=== PATIENT | female | born 1990 | race Two or more races ===

== ENCOUNTER 2023-03-03 00:47 | Inpatient (IN) | payer BC ==
[2023-03-03] VITALS (8 sets, daily range): BP systolic 118–156; BP diastolic 67–91; O2SAT 98
[~2023-03-03] VITALS: Ht 177.8 cm; Wt 103.1 kg
[2023-03-03] MEDS ORDERED: PRENTAB9 PO (00:53)
[2023-03-03] MEDS ORDERED: IRON27TA2 PO (01:33)
[2023-03-03] MEDS ORDERED: ZOLO25TA PO (01:33)
[2023-03-03] MEDS ORDERED: LIDOCAINE 1% MDV 20ML VIAL As Ordered ONE (02:00)
[2023-03-03] MEDS ORDERED: LIDOCAINE 1% MDV 20ML VIAL INFIL PRN (02:25)
[2023-03-03] MEDS ORDERED: OXYTOCIN INJ 10UNITS/ML 1ML VIAL IM PRN (02:25)
[2023-03-03] MEDS ORDERED: METHYLERGONOVINE MALEATE 0.2 MG TAB PO PRN (02:30)
[2023-03-03] MEDS ORDERED: ACETAMINOPHEN TAB 650MG DOSE (2X325MG) PO PRN (02:30)
[2023-03-03] MEDS ORDERED: DOCUSATE SODIUM 100MG CAPSULE PO PRN (02:30)
[2023-03-03] MEDS ORDERED: RHOGAM 300MCG (1500IU) INJ IM SCH (02:30)
[2023-03-03] MEDS ORDERED: IBUPROFEN 800 MG TAB PO PRN (02:30)
[2023-03-03] MEDS ORDERED: DIBUCAINE 1% OINTMENT 30GM TOP PRN (02:30)
[2023-03-03] MEDS ORDERED: IBUPROFEN 600MG TAB PO PRN (02:30)
[2023-03-03] MEDS ORDERED: ACETAMINOPHEN 500 MG TAB PO PRN (02:30)
[2023-03-03 02:31] LABS: HEMATOCRIT 38.8 % (36.0-47.0); HEMOGLOBIN 13.1 g/dl (12.0-15.5); MEAN CORPUSCULAR HEMOGLOBIN 28.9 pg (27.0-33.0); MEAN CORPUSCULAR HGB CONC 33.8 g/dl (32.0-36.5); MEAN CORPUSCULAR VOLUME 85.7 fl (80.0-96.0); PLATELET COUNT, AUTOMATED 201 10^3/uL (150-450); RED BLOOD COUNT 4.53 10^6/uL (4.00-5.40); WHITE BLOOD COUNT 19.5 10^3/uL (4.0-10.0)
[2023-03-03] MEDS: PRENATAL VITAMINS CHEWABLE TABLET PO SCH (08:07)
[2023-03-03] MEDS ORDERED: ZOLO50TA PO (08:45)
[2023-03-03] MEDS ORDERED: SERTRALINE HCL 50 MG TAB PO SCH (21:00)
[2023-03-04 06:00] VITALS: BP 127/87; O2SAT 98
[2023-03-04] MEDS: PRENATAL VITAMINS CHEWABLE TABLET PO SCH (08:51)
[2023-03-05] MEDS ORDERED: MEASLES,MUMPS,RUBELLA VACCINE INJ (MMR-II) SC.IMMUN ONE (09:00)
== END 2023-03-04 12:32 | disposition home or self-care (01) | DRG 560 ==
LOC: M LDO 00:47 → M LDI 01:26 → M OBS 03:46
PROVIDERS: ADMIT Specialist; ATTEND Specialist
PROC: 10E0XZZ Delivery of Products of Conception, External Approach (ICD-10-PCS; principal; 2023-03-03)
DX: O48.0 Post-term pregnancy (principal); Z3A.40 40 weeks gestation of pregnancy; Z37.0 Single live birth; O70.0 First degree perineal laceration during delivery